=== PATIENT | male | born 1960 | race Caucasian/White ===

== ENCOUNTER 2018-04-06 15:30 | Outpatient (CLI) | payer OTHER, SELFPAY ==
[2018-04-06 17:05] LABS: ALT 39 U/L (12-78); AST 23 U/L (15-37); Alkaline Phosphatase 59 U/L (46-116); BUN 15 mg/dL (7-18); Bilirubin, Total 0.4 mg/dL (0.2-1.0); CREATININE 0.83 mg/dL (0.70-1.30); Calcium 8.6 mg/dL (8.5-10.1); Chloride 103 mmol/L (98-107); Glucose 104 mg/dL (70-100); Potassium 4.2 mmol/L (3.5-5.1); Sodium 140 mmol/L (136-145); TSH (W/Ref FT4) 2.22 uIU/mL (0.358-3.74); Total Protein 6.9 g/dL (6.4-8.2)
[2018-04-06 17:24] LABS: GGT 40 U/L (15-85); HDL Cholesterol 60 mg/dL (40-60); LDL CHOLESTEROL 98 mg/dL (<100); Triglyceride 93 mg/dL (30-150)
[2018-04-06 17:39] LABS: Cholesterol 174 mg/dL (50-200)
== END 2018-04-06 15:50 ==
PROVIDERS: PCP Family Medicine; Visit Provider Family Medicine
DX: Z00.00 Encounter for general adult medical examination without abnormal findings (principal); I10 Essential (primary) hypertension
CPT/HCPCS: 36415; 80053; 80061; 83721; 82977; 84443

== ENCOUNTER 2019-01-25 13:30 | Outpatient (CLI) | payer OTHER, SELFPAY ==
[2019-01-25 15:13] LABS: ALT 38 U/L (16-63); AST 18 U/L (15-37); Albumin 4.1 g/dL (3.4-5.0); Alkaline Phosphatase 62 U/L (46-116); Anion Gap 9.7 mmol/L (3-11); BUN 14 mg/dL (7-18); Bilirubin, Total 0.3 mg/dL (0.2-1.0); CO2 25.3 mmol/L (21.0-32.0); CREATININE 1.17 mg/dL (0.70-1.30); Calcium 9.1 mg/dL (8.5-10.1); Chloride 104 mmol/L (98-107); Glucose 88 mg/dL (74-106); Potassium 4.3 mmol/L (3.5-5.1); Sodium 139 mmol/L (136-145); TSH (W/Ref FT4) 3.72 uIU/mL (0.36-3.74); Total Protein 6.9 g/dL (6.4-8.2)
[2019-01-26 13:22] LABS: PSA, Screening 0.6 ng/mL (0.0-3.5)
== END 2019-01-25 13:50 ==
PROVIDERS: PCP Family Medicine; Visit Provider Family Medicine
DX: Z00.00 Encounter for general adult medical examination without abnormal findings (principal); I10 Essential (primary) hypertension; Z12.5 Encounter for screening for malignant neoplasm of prostate
CPT/HCPCS: 36415; 80053; 84153; 84443

== ENCOUNTER 2020-07-18 22:01 | Outpatient (REF) | payer OTHER, SELFPAY ==
[2020-07-18 23:12] LABS: ALT 34 U/L (16-63); AST 19 U/L (15-37); Albumin 4.6 g/dL (3.4-5.0); Alkaline Phosphatase 60 U/L (46-116); Anion Gap 12.1 mmol/L (3-11); BUN 20 mg/dL (7-18); Bilirubin, Total 0.4 mg/dL (0.2-1.0); CO2 23.9 mmol/L (21.0-32.0); CREATININE 0.9 mg/dL (0.70-1.30); Calcium 9.5 mg/dL (8.5-10.1); Chloride 104 mmol/L (98-107); Glucose 103 mg/dL (74-106); Potassium 4.3 mmol/L (3.5-5.1); Sodium 140 mmol/L (136-145); TSH (W/Ref FT4) 2.85 uIU/mL (0.36-3.74); Total Protein 7.4 g/dL (6.4-8.2)
== END 2020-07-18 22:02 | disposition home or self-care (01) ==
LOC: LBN 22:01
PROVIDERS: PCP Family Medicine; Visit Provider Family Medicine
DX: Z00.00 Encounter for general adult medical examination without abnormal findings (principal); I10 Essential (primary) hypertension; Z12.5 Encounter for screening for malignant neoplasm of prostate
CPT/HCPCS: 80053; 84153; 84443

== ENCOUNTER 2022-04-20 00:51 | Outpatient (CLI) | payer OTHER, SELFPAY ==
[2022-04-20 12:38] LABS: ESR 9 mm/hr (0-20)
[2022-04-20 13:12] LABS: ALT 31 U/L (16-63); AST 18 U/L (15-37); Albumin 3.9 g/dL (3.4-5.0); Alkaline Phosphatase 76 U/L (46-116); Anion Gap 7.3 mmol/L (3-11); BUN 17 mg/dL (7-18); Bilirubin, Total 0.3 mg/dL (0.2-1.0); CO2 28.7 mmol/L (21.0-32.0); CREATININE 0.9 mg/dL (0.70-1.30); Calcium 9.6 mg/dL (8.5-10.1); Calculated LDL 109 mg/dL (<100); Chloride 102 mmol/L (98-107); Cholesterol 188 mg/dL (<200); Estimated GFR 97.78 (mL/min/1.73m2); Glucose 108 mg/dL (74-106); HDL Cholesterol 56 mg/dL (40-60); Potassium 4.5 mmol/L (3.5-5.1); Sodium 138 mmol/L (136-145); Total Protein 7.4 g/dL (6.4-8.2); Triglyceride 118 mg/dL (<150)
[2022-04-21 09:55] LABS: Lyme Ab w Rflx to Lyme Confirm Negative (Negative)
[2022-04-23 15:57] LABS: Anaplasma phagocytophilum Negative (Negative); B. miyamotoi PCR Negative (Negative); Babesia divergens/MO-1 Negative (Negative); Babesia duncani Negative (Negative); Babesia microti Negative (Negative); Ehrlichia chaffeensis Negative (Negative); Ehrlichia ewingii/canis Negative (Negative); Ehrlichia muris eauclairensis Negative (Negative)
== END 2022-04-20 00:52 | disposition home or self-care (01) ==
LOC: LOS 00:52
PROVIDERS: PCP Family Medicine; Visit Provider Family Medicine
DX: Z00.00 Encounter for general adult medical examination without abnormal findings (principal); I10 Essential (primary) hypertension; W57.XXXA Bitten or stung by nonvenomous insect and other nonvenomous arthropods, initial encounter; T14.8XXA Other injury of unspecified body region, initial encounter; M54.2 Cervicalgia; M79.18 Myalgia, other site; N40.0 Benign prostatic hyperplasia without lower urinary tract symptoms; Z12.5 Encounter for screening for malignant neoplasm of prostate
CPT/HCPCS: 36415; 80053; 80061; 84153; 85652; 87798; 84443; 86618

== ENCOUNTER 2023-01-13 10:01 | Day surgery (SDC) | payer OTHER, SELFPAY ==
--- NOTE | 2023-01-13 06:39 | ROE_ITS ---
Date of service: 01/13/23 Time of Service: 13:20 Operative Note Operative Note DATE OF PROCEDURE: 01/13/23 PRE-OP DIAGNOSIS: upper back sebaceous cysts and occipital lipoma POST-OP DIAGNOSIS: same PROCEDURE: 1. Excision of sebaceous cysts x2 2. Excision of lipoma SURGEON: Isabel Whatley FINANCIAL SERVICE REP: Tess Garcia ANESTHESIA TYPE: Local By Surgeon Refer to Anesthesia Record ESTIMATED BLOOD LOSS: 25 PATHOLOGY: none sent COMPLICATIONS: None Patient was transported to: same day Patient's condition: stable Indications: Rubens has 2 large sebaceous cysts on his upper back which is starting to cause some discomfort. Thankfully neither one of them has gotten infected at this point. We discussed removal of both of these under local anesthetic. He also has a good sized lipoma of his occipital scalp. This is starting to cause him discomfort when he lays down. It is also growing which sometimes is a worrisome sign. It does feel like a benign lipoma on exam though. Again I think I can remove this under local anesthetic only but I would like to do it in the procedure room so that I actually have cautery. Scalp lesions tend to bleed quite a bit. This was reviewed with Rubens. I did offer sedation if he wanted to. He would rather just have local and be able to drive home himself. I discussed the procedure in detail as well as the risks, benefits and complications. After conversation he had a good understanding of both and wished to proceed. Complications include but are not limited to bleeding, infec tion, seroma, hematoma, wound dehiscence, recurrence. His questions were entertained and answered to his satisfaction. We will proceed with excision of sebaceous cyst and lipoma in the procedure room under local only. I will need cautery. Patient seen at 11:57- he has no further questions about the procedure or the possible complications. He would prefer not to take the pre op meds. I will can reyna them. He signed the consent. Findings: Lipoma was multi-lobulated and not incased. It was removed in pieces Both sebaceous cysts had some scar tissue making them hard to remove. Procedure Description: After informed consent was obtained the patient was placed in a prone position. The skin on his upper back and on his scalp was then prepped and draped in a sterile surgical fashion infiltrated with the above local anesthetic. An incision was made over the lipoma on the occipital area with a 15 blade. Dissection was done around the lesion using both blunt dissection with a hemostat and sharp dissection with curved iris scissors. The lipoma was removed in pieces. It was lobulated and did not have a nice capsule around it. Once the lesion was completely dissected it was removed from the operating field. The wound was irrigated with some saline. Bleeding was stopped using cautery as well as suture ligation. Once the wound was clean and dry the subcutaneous tissue was reapproximated with 3-0 Vicryl interrupted sutures. The dermis was closed with a 3-0 Proline vertical mattrass suture. Skin was cleaned and dried. Next local anesthetic was injected into the dermis over both sebaceous cysts on his upper back. Incisions were made over the sebaceous cysts. Dissection was done around the lesions using both blunt dissection with a hemostat and sharp dissection with curved iris scissors. Once the sebacous cysts were both removed the wounds were irrigated with saline. Bleeding was stopped with pressure and suture ligation. Once the wounds were dried the dermis was closed with proline sutures. The skin was cleaned and dried and pressure dressings were applied. The patient tolerated the procedure well and there were no immediate complications. Needle counts were correct at the end of the case.
--- NOTE | 2023-01-13 06:41 | W.PM.DSUDISC ---
Date of service: 01/13/23 Time of Service: 13:28 Discharge Plan Disposition Patient Disposition: Home Condition: Stable Discharge Details Reason For Visit: Excision of sebaceous cysts and lipoma Attending Provider: Isabel Whatley Primary Care Provider: Susan Anderson Home Meds and New Rx's Prescriptions: New tramadol 50 mg tablet 50 mg PO Q6H PRNQty: 14 0RF Continued lisinopril 20 mg tablet 20 mg PO BID Qty: 180 4RF ibuprofen 200 MG capsule 200 mg PO BID PRN PRN Discharge Instructions Additional Instructions: Activity at Home after surgery: 1. As tolerated Diet, Nutrition, & wound healin. As tolerated Pain Medications: 1. Tylenol 650mg every 6 hours as needed and Ibuprofen 600 mg every 6 hours as needed. You may alternate between the 2 medications every 3 hours 2. Tramadol 50 mg po q 6 hrs prn pain For Constipation: 1. Take Milk of Magnesia or MiraLax as needed for constipation Other: 1. You may shower daily. Do not scrub the incisions 2. Do not soak the incisions for 1 week 3. You may alternate ice and heat as needed for pain and swelling Wound Care: 1. Keep the incisions clean and dry Please call our office if you develop: 1. Fevers >101.5 2. Nausea or Vomiting 3. Worsening pain 4. Redness and thick discharge from the wounds If after hours please call the Hospital at and ask to speak to the on-call surgeon Referrals: Isabel Whatley MD [ [facility] STAFF PHYSICIAN] - Activity:: Activity as Tolerated Remove Dressings/Wound Care:: 24 hours Shower/Bathe:: 24 hours Diet:: As Tolerated DS: Diagnosis Discharge Diagnosis (1) Sebaceous cyst: Status: Acute Asessment and Plan: The patient is doing well post-op from his excision of lipoma and sebaceous cysts.? He is having no nausea or vomiting. He is tolerating liquids and a snack. The pt is not having any chest pain or SOB.? Their pain is adequately controlled. They have been able to urinate.? ?HEENT:? no eye pain/drainage/redness/swelling. Mild sore throat ?Cardio- NSR, no chest pain, BP stable- see VS record ?Pulm: no sob or productive cough. No hemoptysis ?Incision- dressing is c/d/i w/ no excessive bleeding or drainage ?I discussed with the patient the findings at the time of surgery and the patient?s progress. ?We reviewed expectations at home; what the patient could expect for recovery time, and in the post-operative period.? We discussed the importance of walking to avoid blood clots and pneumonia.? We discussed and reviewed the patient's post-operative wound care and dressing needs.?? We reviewed their step-arboleda pain management plan, Rx called to the pharmacy of their choice.? We reviewed activity and limitations-see discharge instructions. We reviewed warning signs, and when to seek medical attention- see d/c instructions.?? Patient was given a postoperative follow-up appointment. Patient verbalized understanding of their postoperative instructions, how do to take care of themselves and their incision, and the pain management plan. Please see discharge instructions.? (2) Lipoma: Status: Acute
[2023-01-13 10:37] VITALS: BP 137/97; PULSE 89; RESP 18; TEMP 37.1; O2SAT 97
[2023-01-13] MEDS: Lidocaine 1% Multi-Dose W/EPI 1/100,000 50 ML VIAL (12:12)
[2023-01-13] MEDS: Sodium Bicarbonate 50 MEQ/50 ML VIAL (12:12)
[2023-01-13] MEDS: Cellulose,Oxidized 2X3 PKT 1 EACH MC (13:13)
[2023-01-13 13:28] VITALS: BP 143/99; PULSE 96; RESP 18; TEMP 36.7; O2SAT 96
[2023-01-13] MEDS: Ibuprofen 600 MG TAB PO (13:46)
== END 2023-01-13 14:03 | disposition home or self-care (01) ==
LOC: SUR 10:01
PROVIDERS: PCP Family Medicine; Visit Provider Surgery
PROC: (CPT 11426; principal; 2023-01-13 10:45)
DX: L72.3 Sebaceous cyst (principal); D17.0 Benign lipomatous neoplasm of skin and subcutaneous tissue of head, face and neck; I10 Essential (primary) hypertension
CPT/HCPCS: 11426; 11404; 11406; 12032

== ENCOUNTER → 2023-01-19 00:31 | Outpatient (CLI) | payer OTHER, SELFPAY ==
--- NOTE | 2023-01-19 15:00 | DI.RAD_ITS ---
Exam(s) XR HIP LT COMPLETE AP PELVIS EXAM: XR HIP LT COMPLETE AP PELVIS CLINICAL HISTORY: l hip pain, worsening,ACUTE,M25.552. TECHNIQUE: 2D digital imaging was performed. Two views. COMPARISON: No exams were available for comparison FINDINGS: BONES: No acute fracture is present. No bony destructive lesion is seen. Enthesophytes noted at the iliac wings. JOINTS: No dislocation present. There is mild narrowing of both superior hip joint spaces. There i s bilateral acetabular spurring, greatest superiorly. The SI joints are unremarkable. SOFT TISSUE: Normal. 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 DATA REPOSITORY: RADIATION DOSE DELIVERED:
--- NOTE | 2023-01-19 15:00 | DI.RAD_ITS ---
Exam(s) XR LUMBAR SPINE COMPLETE EXAM: XR LUMBAR SPINE COMPLETE CLINICAL HISTORY: LOW BACK AND LT HI P PAIN, M54.50. TECHNIQUE: 2D digital imaging was performed. Five views. COMPARISON: CR LUMBAR SPINE COMPLETE from 06/14/2009 MR MRI - LUMBAR SPINE WO CONTRAST from 06/20/2009 FINDINGS: BONES: No fracture or destructive lesion. Vertebral body heights are maintained. L2 spondylolysis is again noted. There is slight spondylolisthesis at L2-3, unchanged. Mild facet degenerative changes . DISKS: Mild narrowing of the L5-S1 disc. Small endplate osteophytes. The remaining intervertebral d isc spaces are maintained. ALIGNMENT: Lumbar spinal alignment is within normal limits. SOFT TISSUE: Normal. IMPRESSION: Mild degenerative changes. 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 DATA REPOSITORY: RADIATION DOSE DELIVERED:
== END ==
PROVIDERS: PCP Family Medicine; Visit Provider Family Medicine
DX: M16.0 Bilateral primary osteoarthritis of hip (principal); M47.816 Spondylosis without myelopathy or radiculopathy, lumbar region
CPT/HCPCS: 72110; 73502

== ENCOUNTER 2025-01-02 13:39 | Outpatient (CLI) | payer OTHER, SELFPAY ==
[2025-01-02 16:17] LABS: ALT 42 U/L (16-63); AST 27 U/L (15-37); Albumin 4.1 g/dL (3.4-5.0); Alkaline Phosphatase 66 U/L (46-116); Anion Gap 10.5 mmol/L (3-11); BUN 19 mg/dL (7-18); Bilirubin, Total 0.4 mg/dL (0.2-1.0); CO2 26.5 mmol/L (21.0-32.0); Calcium 9.1 mg/dL (8.5-10.1); Chloride 101 mmol/L (98-107); Estimated GFR 99.44 (mL/min/1.73m2); Glucose 94 mg/dL (74-106); Potassium 4.0 mmol/L (3.5-5.1); Sodium 138 mmol/L (136-145); Total Protein 7.5 g/dL (6.4-8.2)
[2025-01-02 23:34] LABS: PSA, Screening 2.3 ng/mL (<=4.5)
[2025-01-03 11:10] LABS: Hepatitis C Ab w Rflx HCV PCR Negative (Negative)
== END 2025-01-02 13:40 | disposition home or self-care (01) ==
LOC: LOS 13:39
PROVIDERS: PCP Family Medicine; Visit Provider Family Medicine
DX: I10 Essential (primary) hypertension (principal); Z12.5 Encounter for screening for malignant neoplasm of prostate; Z00.00 Encounter for general adult medical examination without abnormal findings; Z11.59 Encounter for screening for other viral diseases
CPT/HCPCS: 36415; 80053; 84153; 86803